=== PATIENT | female | born 1990 | race Caucasian/White ===

== ENCOUNTER 2024-11-27 13:16 | Emergency (ER) | payer MEDICAID ==
[~2024-11-27] VITALS: Ht 149.9 cm; Wt 109.0 kg
[2024-11-27 13:32] VITALS: O2SAT 100
[2024-11-27] MEDS ORDERED: SULF1TAB48 MT (14:31)
[2024-11-27] MEDS ORDERED: CLIN-116 MT (14:31)
[2024-11-27] MEDS ORDERED: NEOM28OI48 TP (14:31)
[2024-11-27] MEDS: TETANUS, DIPHTHERIA, PERTUSSIS VAC/PF 0.5ML (>10YR OLD) IM ONE (14:45)
[2024-11-27 14:47] VITALS: BP 132/68; PULSE 76; RESP 16; TEMP 36.7; O2SAT 100
== END 2024-11-27 14:47 | disposition home or self-care (01) ==
LOC: ER 13:16
DX: S41.159A Open bite of unspecified upper arm, initial encounter (principal); W55.03XA Scratched by cat, initial encounter; Y93.89 Activity, other specified; Y92.89 Other specified places as the place of occurrence of the external cause; Y99.8 Other external cause status
CPT/HCPCS: 90471; 90715; 99283